=== PATIENT | female | born 1950 | race Caucasian/White ===

== ENCOUNTER → 2016-03-13 | Outpatient (CLI) | payer MEDICARE, OTHER ==
--- NOTE | 2016-03-15 09:50 | MM ---
Reason for exam: screening (asymptomatic). Last mammogram was performed 1 year and 1 month ago. History: Patient is postmenopausal and is nulliparous. Excisional biopsy of the right breast, February 06, 2005. Right Mammotome Panel of the right breast, January 30, 2005. Benign excisional biopsy of the left breast, October 30, 2000. Stereotactic core biopsy of the left breast, September 13, 2000. Core biopsy of the left breast. Physical Findings: A clinical breast exam by your physician is recommended on an annual basis and results should be correlated with mammographic findings. MG Screening Mammo w CAD Bilateral CC and MLO view(s) were taken. Prior study comparison: February 04, 2015, bilateral MG screening mammo w CAD. September 25, 2013, bilateral MG diagnostic mammo w CAD LAWANDA. The breast tissue is heterogeneously dense. This may lower the sensitivity of mammography. There is chronic nodularity bilaterally. There is no dominant lesion. No significant changes when compared with prior studies. ASSESSMENT: Benign, BI-RAD 2 RECOMMENDATION: Routine screening mammogram of both breasts in 1 year.
== END | disposition home or self-care (01) ==
LOC: RADMAMWWP 16:39
PROVIDERS: ATTEND Family Medicine
DX: Z12.31 Encounter for screening mammogram for malignant neoplasm of breast (principal)

== ENCOUNTER → 2018-02-07 | Outpatient (CLI) | payer MEDICARE ==
--- NOTE | 2018-02-08 15:27 | MM ---
Reason for exam: screening (asymptomatic). Last mammogram was performed 1 year and 11 months ago. History: Patient is postmenopausal and is nulliparous. Excisional biopsy of the right breast, February 06, 2005. Right Mammotome Panel of the right breast, January 30, 2005. Benign excisional biopsy of the left breast, October 30, 2000. Stereotactic core biopsy of the left breast, September 13, 2000. Core biopsy of the left breast. Physical Findings: Nurse did not find any significant physical abnormalities on exam. MG 3D Screening Mammo W/Cad Bilateral CC and MLO view(s) were taken. Prior study comparison: March 13, 2016, bilateral MG screening mammo w CAD. February 04, 2015, bilateral MG screening mammo w CAD. There is stable chronic nodularity with calcifications right upper outer quadrant. There is chronic distortion right upper outer quadrant from prior biopsy. ASSESSMENT: Benign, BI-RAD 2 RECOMMENDATION: Routine screening mammogram of both breasts in 1 year.
== END | disposition home or self-care (01) ==
LOC: RADMAMWWP 13:33
PROVIDERS: ATTEND Family Medicine
DX: Z12.31 Encounter for screening mammogram for malignant neoplasm of breast (principal)
CPT/HCPCS: 77063; 77067

== ENCOUNTER → 2018-02-21 | Outpatient (CLI) | payer MEDICARE ==
[2018-02-21 15:27] LABS: HGB 13.6 gm/dL (11.4-16.0); MCH 30.6 pg (25.0-35.0); MCHC 32.5 g/dL (31.0-37.0); MCV 94.3 fL (80.0-100.0); Mean Platelet Volume 6.2; Platelet Count 266 k/uL (150-450); RBC 4.46 m/uL (3.80-5.40); RDW 12.3 % (11.5-15.5); WBC 7.3 k/uL (3.8-10.6)
[2018-02-21 15:41] LABS: Potassium 4.4 mmol/L (3.5-5.1)
== END | disposition home or self-care (01) ==
LOC: LABPAT 14:53
PROVIDERS: ATTEND Internal Medicine Interventional Cardiology
DX: Z01.812 Encounter for preprocedural laboratory examination (principal); E78.2 Mixed hyperlipidemia; I10 Essential (primary) hypertension; I44.7 Left bundle-branch block, unspecified
CPT/HCPCS: 36415; 80051; 82565; 84520; 85027

== ENCOUNTER → 2018-03-08 | Day surgery (SDC) | payer MEDICARE ==
[2018-03-05 15:09] VITALS: BMI 28.6
[~2018-03-08] MED LIST: ALPRAZolam 0.25 MG TAB PO PRN; ALPRAZolam 0.5 MG TAB PO PRN; ASPIRIN 325 MG TAB PO ONE; ASPIRIN 81 MG ONE; ATORVASTATIN 80 MG TAB PO ONE; FATTY ACIDS PO SCH; FERROUS SULFATE 325 MG TAB PO SCH; HEPARIN SODIUM 1,000 UN/ML (10ML VL) IV ONE; HEPARIN SODIUM 1,000 UN/ML (10ML VL) ONE; IOPAMIDOL-370 125ML BTL INJ ONE; KETOROLAC 0.5% OPHTH DROPS 5 ML BTL BOTH EYES SCH; LIDOCAINE 1% INJ 10MG/ML (20 ML MDV) SQ ONE; LISINOPRIL 2.5 MG TAB PO SCH; METOPROLOL SUCCINATE (ER) 25 MG TAB.ER.24H PO SCH; NITROGLYCERIN SL TABS 0.4 MG TAB SUBLINGUAL PRN; NON-FORMULARY DRUG (Aspirin [Adult Low Dose Aspirin Ec] 81 MG) PO SCH; NON-FORMULARY DRUG (Buspirone Hcl [Buspirone Hcl] 15 MG) PO SCH; NON-FORMULARY DRUG (Cholecalciferol (Vitamin D3) [Vitamin D3] 2,000 UNIT) PO SCH; NON-FORMULARY DRUG (Difluprednate [Durezol] 1 DROP) BOTH EYES SCH; OMEGA PO SCH; POTASSIUM CHLORIDE ER 20 MEQ TAB.ER PO SCH; RX INFO: IV CONTRAST WAS GIVEN 1 EACH MISC MISCELLANE PRN; SODIUM CHLORIDE 0.9% 1,000 ML IV SCH; SODIUM CHLORIDE 0.9% 1,000 ML in EMPTY BAG 1 BAG IV ONE; VENLAFAXINE HCL ER 75 MG CAP PO SCH; VERAPAMIL SYRINGE (5 MG/10 ML) INTRAARTER ONE; fentaNYL (PF) 50 MCG/ML 2 ML AMP IV ONE; fentaNYL (PF) 50 MCG/ML 2 ML AMP ONE
[2018-03-08 07:12] VITALS: TEMP 98.1
--- NOTE | 2018-03-08 08:26 | CC ---
CARDIAC CATHETERIZATION REPORT Mrs. Walker is a 67-year-old female with history of hypertension, hyperlipidemia, who has been complaining of progressive symptoms of fatigue. She underwent an echocardiogram that revealed severely impaired left ventricular systolic function. Her echocardiogram and her myocardial perfusion imaging confirmed the impairment of left ventricular systolic function with possible nonischemic cardiomyopathy. In view of that, recommendation was made regarding cardiac catheterization. The procedure as well as the risks and the complications were discussed with the patient who is in full understanding and agreement. PROCEDURE: Patient was brought to the laborer wharf in a fasting semi-sedated state after receiving fentanyl and Benadryl and achieving moderate conscious sedated state. Using Xylocaine anesthesia in the [place], a 6-Paraguayan sheath was introduced in the right radial artery. Selective right and left coronary angiography was performed using 5-Paraguayan 3.5 bend right and left Tennille catheter. Multiple views of the coronary artery including hemiaxial views were obtained. Following that 5-Paraguayan tight pigtail catheter was introduced in the left ventricle and a 30-degree CARLSON view of the left ventricle was obtained. Following that, the catheter and sheaths were removed. Hemostasis was obtained with deployment of TR band. There was no immediate complication. Patient is returned to her room in stable condition. Of note, the patient received a total 4000 units of intravenous heparin as well as intra-arterial verapamil. FINDINGS: LEFT MAIN: This is a short size vessel bifurcating in left circumflex and left anterior descending artery. Left main coronary artery has no evidence of high-grade stenosis. LEFT ANTERIOR DESCENDING ARTERY: This is a large-sized vessel reaching toward the apex with a wraparound apex segment giving rise to 2 small to moderate diagonal branches. The left anterior descending artery as well as branches have no evidence of obstructive coronary artery disease. LEFT CIRCUMFLEX: This is a nondominant vessel, large in caliber giving rise to a large obtuse marginal branch. The left circumflex as well as branches have no evidence of obstructive coronary artery disease. RIGHT CORONARY ARTERY: This is a dominant vessel moderate in caliber bifurcating distally PDA and posterolateral segment and branches. The right coronary artery and its branches have no evidence of obstructive coronary artery disease. LEFT VENTRICULOGRAM: Left ventriculogram was performed in 30-degree CARLSON view and revealed a dilated left ventricle with severe global hypokinesis with ejection fraction of 25% to 30%. There was 2+ mitral regurgitation. HEMODYNAMICS: There was no gradient across the aortic valve. The left ventricular end- diastolic pressure was 16 to 18 mmHg. CONCLUSION: 1. Normal coronary arteries. 2. Severely impaired left ventricular systolic function. RECOMMENDATION: In view of finding anatomy, I have recommend to maximize his medical therapy and proceed with evaluation for Bi-V ICD implantation. The patient presents with a picture of nonischemic cardiomyopathy. Those findings and recommendation were discussed with the patient and her family and they are in full understanding and agreement. Duration of procedure is 17 minutes. MMODL / IJN: [id number] /
[2018-03-08 08:27] VITALS: RESP 18
[2018-03-08 09:43] VITALS: BP 121/57; PULSE 64
== END | disposition home or self-care (01) ==
LOC: CATHCVL 06:07
PROVIDERS: ATTEND Internal Medicine Interventional Cardiology
DX: R94.39 Abnormal result of other cardiovascular function study (principal); I42.9 Cardiomyopathy, unspecified; I44.7 Left bundle-branch block, unspecified; I10 Essential (primary) hypertension; E78.2 Mixed hyperlipidemia; Z79.82 Long term (current) use of aspirin; Z79.899 Other long term (current) drug therapy; Z88.7 Allergy status to serum and vaccine; Z88.8 Allergy status to other drugs, medicaments and biological substances
CPT/HCPCS: 93458; C1894; C1769; J2001; J3010; J1644; Q9967

== ENCOUNTER 2018-04-02 18:30 | Emergency (ER) | payer MEDICARE ==
[2018-04-02 18:51] VITALS: RESP 18
[2018-04-02] MEDS ORDERED: SODIUM CHLORIDE 0.9% 1,000 ML IV STA (20:31)
--- NOTE | 2018-04-02 21:13 | ED ---
General Adult HPI - General Source: patient Mode of arrival: ambulatory Limitations: no limitations <Jarett Prater - Last Filed: 04/02/18 22:56> <Amee Barbosa - Last Filed: 04/03/18 04:31> - General Chief complaint: Upper Respiratory Infection Stated complaint: chest & back pain from coughing Time Seen by Provider: 04/02/18 20:20 - History of Present Illness Initial comments: 67-year-old female patient with past mental history of left ventricular dysfunction, hypertension, hyperlipidemia presents to ED with approximately 1 week of cough, productive. Patient states that while coughing she does have some chest pain. Also coughing she has some shortness of breath. Patient states she has not had chest pain or shortness of breath at baseline will not coughing. Patient states that office productive with mucus. Patient denies any history of COPD. Patient denies abdominal pain, nausea vomiting diarrhea, fevers or chills. Systemic: Pt denies fatigue, myalgia, fever/chills, rash. Pt denies weakness, night sweats, weight loss. Neuro: Pt denies headache, visual disturbances, syncope or pre-syncope. HEENT: Pt denies ocular discharge or irritation, otalgia, rhinorrhea, pharyngitis or notable lymphadenopathy. Abdominal/GI: Pt denies abdominal pain, n/v/d. : Pt denies dysuria, burning w/ urination, frequency/urgency. Denies new onset urinary or bowel incontinence. MSK: Pt denies myalgia, loss of strength or function in extremities. Neuro: Pt denies new onset weakness, paresthesias. (Jarett Prater) - Related Data Home Medications Medication Instructions Recorded Confirmed Aspirin [Adult Low Dose Aspirin EC] 81 mg PO DAILY 03/05/18 04/02/18 Cholecalciferol (Vitamin D3) 2,000 unit PO DAILY 03/05/18 04/02/18 [Vitamin D3] Ferrous Sulfate [Feosol] 325 mg PO DAILY 03/05/18 04/02/18 Lisinopril [Zestril] 2.5 mg PO DAILY 03/05/18 04/02/18 Metoprolol Succinate (ER) [Toprol 25 mg PO BID 03/05/18 04/02/18 Xl] Exeter-3 Fatty Acids [Exeter-3] 1,000 mg PO BID 03/05/18 04/02/18 Potassium Chloride [Klor-Con 20] 20 meq PO DAILY 03/05/18 04/02/18 Simvastatin [Zocor] 20 mg PO HS 03/05/18 04/02/18 Venlafaxine HCl ER [Effexor Xr] 75 mg PO DAILY 03/05/18 04/02/18 busPIRone HCL 15 mg PO BID 04/02/18 04/02/18 Previous Rx's Medication Instructions Recorded Azithromycin [Zithromax Z-pack] 0 mg PO DIRECTED #6 tab 04/02/18 Benzonatate [Tessalon Perles] 100 mg PO TID PRN #20 capsule 04/02/18 methylPREDNISolone Dose Pack 4 mg PO DIRECTED #21 package 04/02/18 [Medrol Dose Pack] Allergies Allergy/AdvReac Type Severity Reaction Status Date / Time hydrochlorothiazide Allergy Unknown Verified 04/02/18 20:51 [From Dyazide] Tetanus Vaccines and Toxoid Allergy Swelling Verified 04/02/18 20:51 triamterene [From Dyazide] Allergy Unknown Verified 04/02/18 20:51 Review of Systems ROS Other: All systems not noted in ROS Statement are negative. <Jarett Prater - Last Filed: 04/02/18 22:56> ROS Other: All systems not noted in ROS Statement are negative. <Amee Barbosa P - Last Filed: 04/03/18 04:31> ROS Statement: Those systems with pertinent positive or pertinent negative responses have been documented in the HPI. Past Medical History Past Medical History: Hyperlipidemia, Hypertension Additional Past Medical History / Comment(s): "heart problem" History of Any Multi-Drug Resistant Organisms: None Reported Past Surgical History: Cholecystectomy Past Psychological History: No Psychological Hx Reported Smoking Status: Never smoker Past Alcohol Use History: None Reported Past Drug Use History: None Reported <Jarett Prater - Last Filed: 04/02/18 22:56> General Exam Limitations: no limitations <Jarett Prater - Last Filed: 04/02/18 22:56> <Amee Barbosa P - Last Filed: 04/03/18 04:31> - General Exam Comments Initial Comments: Constitutional: NAD, AOX3, Pt has pleasant affect. HEENT: NC/AT, trachea midline, neck supple, no lymphadenopathy. Posterior pharynx non erythematous, without exudates. External ears appear normal, without discharge. Mucous membranes moist. Eyes PERRLA, EOM intact. There is no scleral icterus. No pallor noted. Cardiopulmonary: RRR, no murmurs, rubs or gallops, no JVD noted. Lungs CTAB in anterior and posterior montoya. No peripheral edema. Abdominal exam: Abdomen soft and non-distended. Abdomen non-tender to palpation in all 4 quadrants. Bowel sounds active in LLQ. No hepatosplenomegaly. No ecchymosis Neuro: CN II-XII grossly intact. No nuchal rigidity. MSK: No posterior calf tenderness bilaterally, homans sign negative bilaterally. Posterior tibialis and radial pulse +2 bilaterally. Sensation intact in upper and lower extremities. Full active ROM in upper and lower extremities, 5/5 stregnth. (Jarett Prater) Vital Signs 04/02/18 04/02/18 18:48 23:26 Temperature 98.2 F 97.6 F Pulse Rate 73 74 Respiratory 18 18 Rate Blood Pressure 103/62 131/76 O2 Sat by Pulse 95 96 Oximetry Medical Decision Making - Lab Data Result diagrams: 04/02/18 21:06 04/02/18 21:06 - EKG Data -: EKG Interpreted by Me (and dr barbosa) <Jarett Prater - Last Filed: 04/02/18 22:56> - Lab Data Result diagrams: 04/02/18 21:06 04/02/18 21:06 <Amee Barbosa - Last Filed: 04/03/18 04:31> - Medical Decision Making 67-year-old female patient with past mental history of left ventricular dysfunction, hypertension, hyperlipidemia presents to ED with approximately 1 week of cough, productive. Patient states that while coughing she does have some chest pain. Also coughing she has some shortness of breath. Patient states she has not had chest pain or shortness of breath at baseline will not coughing. Patient states that cough is productive with mucus. Patient vital signs stable, afebrile. Physical exam did not display acute pathology. Laboratory investigation revealed non-impressive CBC, CMP, troponin negative. D -dimer mildly elevated. Chest raise with no acute process. CT pulmonary angiography displayed no PE, no aortic aneurysm or dissection, mild bronchial wall thickening right lower lobe concerning for bronchitis. EKG displayed left frontal branch block which is consistent with prior EKG. Patient to be treated for bronchitis. Patient to follow up with primary care provider, return to ED if new s/sx develop or if conditions worsen in anyway. Case discussed in depth with Dr. Barbosa. (Jarett Prater) I was available for consultation in the emergency department. The history and physical exam were done by the midlevel provider. I was consulted for this patient's care. I reviewed the case with the midlevel provider and based on their presentation of the patient, I agree with the assessment, medical decision making and plan of care as documented. (Amee Barbosa) - Lab Data Lab Results 04/02/18 04/02/18 04/02/18 Range/Units 21:06 21:06 21:06 WBC 7.9 (3.8-10.6) k/uL RBC 4.07 (3.80-5.40) m/uL Hgb 12.7 (11.4-16.0) gm/dL Hct 37.5 (34.0-46.0) % MCV 92.1 (80.0-100.0) fL MCH 31.3 (25.0-35.0) pg MCHC 34.0 (31.0-37.0) g/dL RDW 12.2 (11.5-15.5) % Plt Count 181 (150-450) k/uL Neutrophils % 66 % Lymphocytes % 20 % Monocytes % 8 % Eosinophils % 4 % Basophils % 0 % Neutrophils # 5.3 (1.3-7.7) k/uL Lymphocytes # 1.6 (1.0-4.8) k/uL Monocytes # 0.6 (0-1.0) k/uL Eosinophils # 0.3 (0-0.7) k/uL Basophils # 0.0 (0-0.2) k/uL D-Dimer 0.72 H (<0.60) mg/L FEU Sodium 141 (137-145) mmol/L Potassium 4.6 (3.5-5.1) mmol/L Chloride 106 (98-107) mmol/L Carbon Dioxide 29 (22-30) mmol/L Anion Gap 6 mmol/L BUN 16 (7-17) mg/dL Creatinine 0.81 (0.52-1.04) mg/dL Est GFR (CKD-EPI)AfAm 88 (>60 ml/min/1.73 sqM) Est GFR (CKD-EPI)NonAf 76 (>60 ml/min/1.73 sqM) Glucose 92 (74-99) mg/dL Calcium 8.7 (8.4-10.2) mg/dL Total Bilirubin 0.3 (0.2-1.3) mg/dL AST 34 (14-36) U/L ALT 44 (9-52) U/L Alkaline Phosphatase 52 (38-126) U/L Troponin I (0.000-0.034) ng/mL Total Protein 6.5 (6.3-8.2) g/dL Albumin 3.6 (3.5-5.0) g/dL 04/02/18 Range/Units 21:06 WBC (3.8-10.6) k/uL RBC (3.80-5.40) m/uL Hgb (11.4-16.0) gm/dL Hct (34.0-46.0) % MCV (80.0-100.0) fL MCH (25.0-35.0) pg MCHC (31.0-37.0) g/dL RDW (11.5-15.5) % Plt Count (150-450) k/uL Neutrophils % % Lymphocytes % % Monocytes % % Eosinophils % % Basophils % % Neutrophils # (1.3-7.7) k/uL Lymphocytes # (1.0-4.8) k/uL Monocytes # (0-1.0) k/uL Eosinophils # (0-0.7) k/uL Basophils # (0-0.2) k/uL D-Dimer (<0.60) mg/L FEU Sodium (137-145) mmol/L Potassium (3.5-5.1) mmol/L Chloride (98-107) mmol/L Carbon Dioxide (22-30) mmol/L Anion Gap mmol/L BUN (7-17) mg/dL Creatinine (0.52-1.04) mg/dL Est GFR (CKD-EPI)AfAm (>60 ml/min/1.73 sqM) Est GFR (CKD-EPI)NonAf (>60 ml/min/1.73 sqM) Glucose (74-99) mg/dL Calcium (8.4-10.2) mg/dL Total Bilirubin (0.2-1.3) mg/dL AST (14-36) U/L ALT (9-52) U/L Alkaline Phosphatase (38-126) U/L Troponin I <0.012 (0.000-0.034) ng/mL Total Protein (6.3-8.2) g/dL Albumin (3.5-5.0) g/dL - EKG Data EKG Comments: Normal sinus rhythm, left bundle-branch block, intergluteal rate 69,. For 169, QRS 154, QT/QTc 460/492. Left bundle-branch block is consistent with prior EKG. No concern for acute ischemia. (Jarett Prater) Disposition Is patient prescribed a controlled substance at d/c from ED?: No Time of Disposition: 22:36 <Jarett Prater - Last Filed: 04/02/18 22:56> <Amee Barbosa - Last Filed: 04/03/18 04:31> Clinical Impression: Bronchitis Disposition: HOME SELF-CARE Condition: Stable Instructions (If sedation given, give patient instructions): Acute Bronchitis ( ED) Additional Instructions: Patient to adhere to previously discussed treatment plan and will take medication(s) as directed. Patient to follow up with PCP in 1-2 days. Patient to return to ED if symptoms do not improve. Prescriptions: Azithromycin [Zithromax Z-pack] 0 mg PO DIRECTED #6 tab Benzonatate [Tessalon Perles] 100 mg PO TID PRN #20 capsule PRN Reason: Cough methylPREDNISolone Dose Pack [Medrol Dose Pack] 4 mg PO DIRECTED #21 package Referrals: David Rm MD [Primary Care Provider] - 1-2 days
[2018-04-02 21:24] LABS: Basophils % (A) 0 %; Eosinophils # (A) 0.3 k/uL (0-0.7); Eosinophils % (A) 4 %; HCT 37.5 % (34.0-46.0); HGB 12.7 gm/dL (11.4-16.0); Lymphocytes # (A) 1.6 k/uL (1.0-4.8); Lymphocytes % (A) 20 %; MCH 31.3 pg (25.0-35.0); MCV 92.1 fL (80.0-100.0); Mean Platelet Volume 6.1; Monocytes # (A) 0.6 k/uL (0-1.0); Monocytes % (A) 8 %; Neutrophils # (A) 5.3 k/uL (1.3-7.7); Neutrophils % (A) 66 %; Platelet Count 181 k/uL (150-450); RBC 4.07 m/uL (3.80-5.40); RDW 12.2 % (11.5-15.5); WBC 7.9 k/uL (3.8-10.6)
[2018-04-02 21:42] LABS: Albumin 3.6 g/dL (3.5-5.0); Calcium 8.7 mg/dL (8.4-10.2); Potassium 4.6 mmol/L (3.5-5.1); Total Bilirubin 0.3 mg/dL (0.2-1.3); Total Protein 6.5 g/dL (6.3-8.2)
--- NOTE | 2018-04-02 21:48 | XR ---
EXAMINATION: XR chest 2V DATE AND TIME: 04/02/2018 9:28 PM CLINICAL INDICATION: PHH; Pain TECHNIQUE: Departmental protocol COMPARISON: None FINDINGS: The lungs are clear. The pleural spaces are negative. The cardiac silhouette is mildly enlarged. The remainder of the mediastinal silhouette is unremarkabl e. The skeletal structures and soft tissues are negative for acute findings. IMPRESSION: NO ACUTE PROCESS.
[2018-04-02] MEDS ORDERED: SODIUM CHLORIDE 0.9% 500 ML 500 ML IV STA (22:07)
[2018-04-02] MEDS ORDERED: BENZONATATE 100 MG CAP PO STA (22:07)
--- NOTE | 2018-04-02 22:17 | CT ---
EXAM: CT Angiography Chest With Intravenous Contrast CLINICAL HISTORY: ITS.REASON CT Reason: Pain TECHNIQUE: Axial computed tomographic angiography images of the chest with intravenous contrast using pulmonary embolism protocol. CTDI is 11.17 mGy and DLP is 353.20 mGy-cm. This CT exam was performed using one or more of the following dose reduction techniques: automated exposure control, adjustment of the mA and/or kV according to patient size, and/or use of iterative reconstruction technique. MIP reconstructed images were created and reviewed. COMPARISON: None FINDINGS: Lung parenchyma: Mild dependent atelectasis bilaterally. No focal consolidation. No nodule. Pleural space: Normal. No pleural effusion or pneumothorax. Mediastinum/ella: Nonspecific mildly prominent mediastinal lymph nodes and prominent hilar lymph nodes. Heart: Borderline size of the heart. No pericardial effusion. Vasculature: Normal. No pulmonary embolus. Aorta: Mild atherosclerotic changes. No aneurysm or dissection. Airways: Bronchial wall thickening in the right lower lobe is concerning for bronchitis. Bones: Degenerative changes of the spine. No bony lesion or acute fracture. Muscles: No mass. Subcutaneous tissues: Normal. Upper abdomen: Prior cholecystectomy. Mild atrophy of the pancreas. IMPRESSION: 1. No pulmonary embolus identified. 2. No aortic aneurysm or dissection. 3. Mild bronchial wall thickening in the right lower lobe is concerning for bronchitis. 4. Nonspecific mildly prominent mediastinal lymph nodes and prominent hilar lymph nodes.
[2018-04-02 23:30] VITALS: BP 131/76; PULSE 74; TEMP 97.6
== END 2018-04-02 23:26 | disposition home or self-care (01) ==
LOC: EC 18:30
DX: J40 Bronchitis, not specified as acute or chronic (principal); E78.5 Hyperlipidemia, unspecified; I10 Essential (primary) hypertension; Z79.82 Long term (current) use of aspirin; Z79.899 Other long term (current) drug therapy; Z88.7 Allergy status to serum and vaccine; Z88.8 Allergy status to other drugs, medicaments and biological substances
CPT/HCPCS: 36415; 93005; 85379; 80053; 84484; 85025; 71046; 71275; 99285; 96360; 96361 ×2; Q9967

== ENCOUNTER → 2018-08-16 | Outpatient (CLI) | payer MEDICARE ==
[2018-08-16 23:19] LABS: African American GFR (CKD) 88.4 (60.0-200.0); Albumin 4.3 g/dL (3.80-4.90); Albumin/Globulin Ratio 2.05 (1.60-3.17); Anion Gap 12.2 mmol/L (4.00-12.00); BUN/Creat Ratio 21.25 Ratio (12.00-20.00); Calcium 9.3 mg/dL (8.7-10.3); Carbon Dioxide 25.8 mmol/L (21.6-31.8); Globulin 2.1 g/dL (1.6-3.3); Potassium 4.4 mmol/L (3.5-5.5); Total Bilirubin 0.3 mg/dL (0.2-1.2); Total Protein 6.4 g/dL (6.2-8.2)
== END | disposition home or self-care (01) ==
LOC: LABWHC1 15:34
PROVIDERS: ATTEND Nurse Practitioner Adult Health
DX: I42.8 Other cardiomyopathies (principal)
CPT/HCPCS: 36415; 80053

== ENCOUNTER → 2018-12-04 | Outpatient (CLI) | payer MEDICARE ==
[2018-12-04 13:38] LABS: Prothrombin Time 10.9 sec (9.0-12.0)
[2018-12-04 13:40] LABS: Basophils % (A) 1 %; Eosinophils # (A) 0.1 k/uL (0-0.7); Eosinophils % (A) 2 %; HCT 39.3 % (34.0-46.0); HGB 13.4 gm/dL (11.4-16.0); Lymphocytes # (A) 1.8 k/uL (1.0-4.8); Lymphocytes % (A) 37 %; MCH 31.8 pg (25.0-35.0); MCV 93.6 fL (80.0-100.0); Mean Platelet Volume 5.9; Monocytes # (A) 0.3 k/uL (0-1.0); Monocytes % (A) 5 %; Neutrophils # (A) 2.7 k/uL (1.3-7.7); Neutrophils % (A) 53 %; Platelet Count 243 k/uL (150-450)
[2018-12-04 19:38] LABS: African American GFR (CKD) 76.7 (60.0-200.0); Anion Gap 12.3 mmol/L (4.00-12.00); BUN/Creat Ratio 16.67 Ratio (12.00-20.00); Calcium 9.3 mg/dL (8.7-10.3); Carbon Dioxide 25.7 mmol/L (21.6-31.8); Potassium 4.3 mmol/L (3.5-5.5)
== END | disposition home or self-care (01) ==
LOC: LABWHC1 12:41
DX: I42.8 Other cardiomyopathies (principal)
CPT/HCPCS: 36415; 80048; 85025; 85610

== ENCOUNTER → 2022-12-20 | Outpatient (CLI) | payer MEDICARE ==
--- NOTE | 2022-12-21 08:51 | MM ---
Reason for Exam: Screening (asymptomatic). Last mammogram was performed 4 year(s) and 10 month(s) ago. Patient History: Menarche at age 13. Patient has no children. Postmenopausal. 02/06/2005, Excisional Biopsy on the Right side. Core Biopsy on the Left side. 01/30/2005, Core Biopsy on the Right side. 10/30/2000, Benign Excisional Biopsy on the left side. 09/13/2000, Stereotactic Core Biopsy on the Left side. Maternal cousin had breast cancer. Risk Values: Meg 5 year model risk: 2.9%. NCI Lifetime model risk: 7.9%. Prior Study Comparison: 02/04/2015 Bilateral Screening Mammogram, [facility]. 03/13/2016 Bilateral Screening Mammogram, [facility]. 02/07/2018 Bilateral Screening Mammogram, [facility]. Tissue Density: The breast tissue is heterogeneously dense. This may lower the sensitivity of mammography. Findings: Analyzed By CAD. There is no suspicious group of microcalcifications or new suspicious mass in either breast. Chronic nodularity within both breasts. Left axillary pacemaker power pack. Overall Assessment: Benign, BI-RAD 2 Management: Screening Mammogram of both breasts in 1 year. A clinical breast exam by your physician is recommended on an annual basis and results should be correlated with mammographic findings. Note on Meg scores and lifetime risk: 1. A Meg score greater than 3% is considered moderate risk. If this is the case, consider specialist referral to assess eligibility for a risk reducing agent. If overall lifetime risk for the development of breast cancer is 20% or higher, the patient may qualify for future screening with alternating mammogram and breast MRI. Electronically signed and approved by: Omega Gloria D.O.
== END | disposition home or self-care (01) ==
LOC: RADMAMWWP 08:35
PROVIDERS: ATTEND Family Medicine
DX: Z12.31 Encounter for screening mammogram for malignant neoplasm of breast (principal); Z78.0 Asymptomatic menopausal state; Z80.3 Family history of malignant neoplasm of breast
CPT/HCPCS: 77063; 77067

== ENCOUNTER → 2023-12-13 | Outpatient (CLI) | payer MEDICARE ==
[2023-12-13 20:43] LABS: NT-Pro-B-Type Natriuretic Pept 101 pg/mL (0-125)
[2023-12-13 21:03] LABS: ALT 57 U/L (8-44); AST 43 U/L (13-35); Albumin 4.3 g/dL (3.8-4.9); Albumin/Globulin Ratio 1.65 Ratio (1.60-3.17); Alkaline Phosphatase 66 U/L (41-126); BUN/Creat Ratio 18.55 Ratio (12.00-20.00); Blood Urea Nitrogen 20.4 mg/dL (9.0-27.0); Calcium 9.9 mg/dL (8.7-10.3); Carbon Dioxide 24.3 mmol/L (21.6-31.8); Chloride 101 mmol/L (96-109); Chol/HDL Ratio 3.94 Ratio; Globulin 2.6 g/dL (1.6-3.3); Glucose 154 mg/dL (70-110); LDL Cholesterol,Calculated 79.9 mg/dL (0.0-131.0); Potassium 4.8 mmol/L (3.5-5.5); Sodium 141 mmol/L (135-145); Total Bilirubin 0.3 mg/dL (0.3-1.2); Total Protein 6.9 g/dL (6.2-8.2)
== END | disposition home or self-care (01) ==
LOC: LABWHC1 14:59
PROVIDERS: ATTEND Internal Medicine Interventional Cardiology
CPT/HCPCS: 36415; 80053; 80061; 83880

== ENCOUNTER → 2024-03-17 | Outpatient (CLI) | payer MEDICARE ==
--- NOTE | 2024-03-17 16:37 | MM ---
Reason for Exam: Screening (asymptomatic). Last mammogram was performed 1 year(s) and 3 month(s) ago. Patient History: Menarche at age 13. Patient has no children. Postmenopausal. 02/06/2005, Excisional Biopsy on the Right side. Core Biopsy on the Left side. 01/30/2005, Core Biopsy on the Right side. 10/30/2000, Benign Excisional Biopsy on the left side. 09/13/2000, Stereotactic Core Biopsy on the Left side. Maternal cousin had breast cancer. Risk Values: Meg 5 year model risk: 2.9%. NCI Lifetime model risk: 7.5%. Prior Study Comparison: 03/13/2016 Bilateral Screening Mammogram, [facility]. 02/07/2018 Bilateral Screening Mammogram, [facility]. 12/20/2022 Bilateral MG 3D screening mammo w/cad, [facility]. Tissue Density: There are scattered areas of fibroglandular density. Findings: Analyzed By CAD. Generator device projecting over the left pectoralis. Areas of bilateral asymmetric density are unchanged. There is no suspicious group of microcalcifications or new suspicious mass in either breast. Overall Assessment: Benign, BI-RAD 2 Management: Screening Mammogram of both breasts in 1 year. Patient should continue monthly self-breast exams. A clinical breast exam by your physician is recommended on an annual basis. This exam should not preclude additional follow-up of suspicious palpable abnormalities. Note on Meg scores and lifetime risk: 1. A Meg score greater than 3% is considered moderate risk. If this is the case, consider specialist referral to assess eligibility for a risk reducing agent. 2. If overall lifetime risk for the development of breast cancer is 20% or higher, the patient may qualify for future screening with alternating mammogram and breast MRI. [facility], , 03/17/2024 4:35 PM. Electronically signed and approved by: Scotty Dobbs M.D. Radiologist
== END | disposition home or self-care (01) ==
LOC: RADMAMWWP 14:43
PROVIDERS: ATTEND Family Medicine
DX: Z12.31 Encounter for screening mammogram for malignant neoplasm of breast (principal); R92.323 Mammographic fibroglandular density, bilateral breasts; Z78.0 Asymptomatic menopausal state; Z80.3 Family history of malignant neoplasm of breast
CPT/HCPCS: 77063; 77067

== ENCOUNTER → 2024-06-09 | Outpatient (CLI) | payer MEDICARE ==
--- NOTE | 2024-06-09 15:25 | CT ---
EXAMINATION TYPE: CT lumbar spine wo con DATE OF EXAM: 06/09/2024 3:03 PM COMPARISON: None. CLINICAL INDICATION: Female, 74 years old with history of R42,R202 PARESTHESIA OF SKIN, Chronic lower back pain, pain TECHNIQUE: CT of the lumbar spine is performed on a spiral scan at 3 mm thick sections. Reconstructed images are performed in the coronal and sagittal planes. Contrast used: mL of , (none if empty) Oral contrast used: (none if empty) CT DLP: 700.8 mGycm, Automated exposure control for dose reduction was used. FINDINGS: T11-T12: Mild disc bulge is present with anterior thecal sac flattening. No AP spinal canal stenosis present. Moderate bilateral foraminal narrowing is present. No spinal canal stenosis. T12-L1: No focal disc herniation or significant disc bulge is evident. No spinal canal stenosis or neural foraminal stenosis is present. L1-L2: Minimal disc bulge is present with anterior thecal sac contact. Mild facet hypertrophy is pres ent. No spinal canal stenosis is present. Neural foramen are patent. L2-L3: There is loss of disc height at this level. Endplate changes and spurring and moderate anterio r thecal sac impression. No AP spinal canal stenosis present. Moderate to severe bilateral foraminal narrowing is present. L3-L4: Disc space narrowing is present. Mild residual disc bulge is present with anterior thecal sac flattening. No AP spinal canal stenosis present. Facet hypertrophy is present. Moderate left and kareem re right foraminal stenosis is present. L4-L5: There is a grade 1 spondylolisthesis with disc uncovering. This has moderate anterior thecal s ac compression. Facet hypertrophy is present. These are contributing to severe spinal canal stenosis with AP diameter of 0.7 cm. Severe bilateral foraminal narrowing is present. L5-S1: No focal disc herniation or significant disc bulge is evident. No spinal canal stenosis or n eural foraminal stenosis is present. Facet hypertrophy is present. IMPRESSION: 1. Grade 1 spondylolisthesis with disc uncovering and marked facet hypertrophy contributing to sever e spinal canal stenosis at this level. 2. Residual disc bulging with loss of disc height at the L2-L3 L3-L4 levels. This is mild-moderate an terior thecal sac compression without spinal canal stenosis. 3. Multilevel severe foraminal stenosis discussed above. [facility], , 06/09/2024 3:22 PM
== END | disposition home or self-care (01) ==
LOC: RADCTMAIN 14:45
PROVIDERS: ATTEND Family Medicine
DX: M43.16 Spondylolisthesis, lumbar region (principal); M48.061 Spinal stenosis, lumbar region without neurogenic claudication; M51.360 Other intervertebral disc degeneration, lumbar region with discogenic back pain only; R20.2 Paresthesia of skin
CPT/HCPCS: 72131